=== PATIENT | male | born 1995 | race Caucasian/White ===

== ENCOUNTER → 2017-04-05 | Outpatient (CLI) | payer OTHER ==
--- NOTE | 2017-04-05 14:39 | XR ---
EXAMINATION TYPE: XR wrist complete LT DATE OF EXAM: 04/05/2017 COMPARISON: NONE HISTORY: Pain TECHNIQUE: Four views submitted. FINDINGS: The osseous structures are intact. The joint spaces are preserved and there is no acute fracture or dislocation. IMPRESSION: 1. No definite acute fracture or dislocation if symptoms persist, follow-up study in 7 to 10 days wo uld be suggested
--- NOTE | 2017-04-05 14:39 | XR ---
EXAMINATION TYPE: XR hand complete LT DATE OF EXAM: 04/05/2017 COMPARISON: NONE HISTORY: Pain TECHNIQUE: Three views are submitted. FINDINGS: The osseous structures are intact. Tiny bony density at the base of the proximal phalanx third digit may be chronic correlate with point tenderness. The joint spaces are preserved and there is no acute fracture or dislocation. IMPRESSION: 1. No definite acute fracture or dislocation if symptoms persist, follow-up study in 7 to 10 days wo uld be suggested. There is a tiny bony density adjacent to the base of the proximal phalanx third dig it which may be chronic. Correlate with point tenderness.
== END | disposition home or self-care (01) ==
LOC: RADXRMAIN 14:21
PROVIDERS: ATTEND Emergency Medicine
DX: M89.8X4 Other specified disorders of bone, hand (principal); S60.222A Contusion of left hand, initial encounter; S63.512A Sprain of carpal joint of left wrist, initial encounter

== ENCOUNTER 2017-09-16 18:01 | Emergency (ER) | payer BC ==
[2017-09-16] MEDS ORDERED: ACETAMINOPHEN TAB 500 MG TAB PO STA (18:12)
[2017-09-16] MEDS ORDERED: IBUPROFEN 600 MG TAB PO STA (18:14)
--- NOTE | 2017-09-16 18:27 | ED ---
Fever HPI - General Chief Complaint: Fever Stated Complaint: flu like symptoms Time Seen by Provider: 09/16/17 18:13 Source: patient Mode of arrival: ambulatory Limitations: no limitations - History of Present Illness Initial Comments: 21-year-old male patient presents to the emergency department today for complaints of fever and upper respiratory symptoms 3 days. Patient states that he has had cough, nasal congestion and drainage, and sore throat for the last 3 days. States that his fever has been high, states that he did take 2 pills earlier today however he is not sure which medication he took. He states that his fever will resolve and then it will go back up again. He is also reporting body aches, headache, and facial pressure. Denies any vomiting. Denies any constipation or diarrhea. He denies any sick contacts. He did not receive flu vaccine. Patient denies any recent rash, shortness breath, chest pain, abdominal pain, back pain, numbness, tingling, dizziness, weakness, hematuria, dysuria, urinary urgency, urinary frequency, visual changes, or any other complaints. - Related Data Previous Rx's Medication Instructions Recorded Acetaminophen Tab [Tylenol Tab] 1,000 mg PO Q6HR #30 tablet 09/16/17 Ibuprofen [Motrin] 600 mg PO Q8HR PRN #30 tab 09/16/17 Allergies Allergy/AdvReac Type Severity Reaction Status Date / Time No Known Allergies Allergy Verified 09/16/17 18:08 Review of Systems ROS Statement: Those systems with pertinent positive or pertinent negative responses have been documented in the HPI. ROS Other: All systems not noted in ROS Statement are negative. Past Medical History Past Medical History: No Reported History History of Any Multi-Drug Resistant Organisms: None Reported Past Surgical History: Appendectomy, Tonsillectomy Additional Past Surgical History / Comment(s): testicular surgery Past Psychological History: No Psychological Hx Reported Smoking Status: Current every day smoker Past Alcohol Use History: None Reported Past Drug Use History: Marijuana General Exam Limitations: no limitations General appearance: alert, in no apparent distress, other (This is a well- developed, well-nourished adult male patient in no acute distress. Vital signs upon presentation are temperature 101.3F, pulse 116, respirations 20, blood pressure 110/60, pulse ox 96% on room air.) Eye exam: Present: normal appearance, PERRL, EOMI. Absent: scleral icterus, conjunctival injection, periorbital swelling ENT exam: Present: normal exam, mucous membranes moist, TM's normal bilaterally , other (No tonsillar hypertrophy or exudate noted). Absent: normal oropharynx (Oropharyngeal erythema) Neck exam: Present: normal inspection. Absent: tenderness, meningismus, lymphadenopathy Respiratory exam: Present: normal lung sounds bilaterally. Absent: respiratory distress, wheezes, rales, rhonchi, stridor Cardiovascular Exam: Present: normal rhythm, tachycardia, normal heart sounds. Absent: systolic murmur, diastolic murmur, rubs, gallop, clicks GI/Abdominal exam: Present: soft, normal bowel sounds. Absent: distended, tenderness, guarding, rebound, rigid Neurological exam: Present: alert, oriented X3, CN II-XII intact Psychiatric exam: Present: normal affect, normal mood Skin exam: Present: warm, dry, intact, normal color. Absent: rash Course Vital Signs 09/16/17 18:06 Temperature 101.3 F H Pulse Rate 116 H Respiratory 20 Rate Blood Pressure 110/60 O2 Sat by Pulse 96 Oximetry Medical Decision Making - Lab Data Lab Results 09/16/17 09/16/17 Range/Units 18:10 18:10 Influenza Type A RNA Detected H (Not Detectd) Influenza Type B (PCR) Not Detected (Not Detectd) Group A Strep Rapid Negative (Negative) - Radiology Data Radiology results: report reviewed, image reviewed 21-year-old male patient percents to the emergency department today for complaints of fever and upper respiratory symptoms 3 days. Physical examination did reveal some oropharyngeal erythema. Lungs are clear to auscultation with good air movement. Patient was positive for influenza A. Did discuss that he is out of the treatment window for Tamiflu. I did discuss home management techniques. I instructed him regarding good control of his fever. As well as increasing fluids and getting rest. He is instructed to follow-up with his primary care physician for recheck in 1-2 days. He is instructed to return here immediately for any new, worsening, or concerning symptoms. He verbalizes understanding and agrees this plan. Disposition Clinical Impression: Influenza A Disposition: HOME SELF-CARE Condition: Good Instructions: Fever in Adults (ED), Influenza (ED) Additional Instructions: Increase fluids, especially water and things like Gatorade. Treat her fever with Tylenol and Motrin. Take kmit-pop-ujhdemy nasal decongestants like DayQuil , NyQuil, or Sudafed. Rest. Follow-up with her doctor for recheck in 1-2 days. Return here immediately for any new, worsening, or concerning symptoms. Prescriptions: Acetaminophen Tab [Tylenol Tab] 1,000 mg PO Q6HR #30 tablet Ibuprofen [Motrin] 600 mg PO Q8HR PRN #30 tab PRN Reason: Pain Referrals: None,Stated [Primary Care Provider] - 1-2 days Time of Disposition: 19:11
[2017-09-16 19:17] VITALS: BP 112/58; PULSE 110; RESP 18; TEMP 97.9
== END 2017-09-16 19:17 | disposition home or self-care (01) ==
LOC: EC 18:01
DX: J10.1 Influenza due to other identified influenza virus with other respiratory manifestations (principal); F17.200 Nicotine dependence, unspecified, uncomplicated
CPT/HCPCS: 87081; 87430; 87502; 99283

== ENCOUNTER 2017-12-12 21:41 | Emergency (ER) | payer OTHER ==
[2017-12-12] MEDS ORDERED: IBUPROFEN 600 MG TAB PO ONE (23:20)
[2017-12-12] MEDS ORDERED: SULFAMETHOX-TMP 800-160MG 1 EACH TAB ONE (23:20)
== END 2017-12-12 23:00 | disposition home or self-care (01) ==
LOC: EC 21:41
DX: L05.01 Pilonidal cyst with abscess (principal); F17.200 Nicotine dependence, unspecified, uncomplicated
CPT/HCPCS: 99283

== ENCOUNTER 2017-12-26 06:31 | Day surgery (SDC) | payer OTHER ==
[~2017-12-26 06:31] MED LIST: HEPARIN SODIUM,PORCINE 5,000 UNIT/ML 1 ML VIAL SQ ONE; Pre Op ABX Message 1 EACH MISC MISCELLANE ONE; ceFAZolin IN SWFI 2 GM/20 ML SYRINGE IVP ONE; metroNIDAZOLE-NS PMX 500 MG in SALINE 1 100ML.BAG IVPB ONE
[2017-12-26 07:00] VITALS: RESP 16; TEMP 98.8
[2017-12-26] MEDS ORDERED: LACTATED RINGERS 1,000 ML IV ONE (07:12)
[2017-12-26] MEDS ORDERED: LIDOCAINE 1% 20 ML VIAL (10MG/ML) FOR IV START INTRADERMA ONE (07:12)
[2017-12-26] MEDS: LACTATED RINGERS 1,000 ML IV ONE ×2 (07:12→09:31)
[2017-12-26] MEDS ORDERED: DEXAMETHASONE SOD PHOSPHATE 10 MG/ML 1 ML VIAL IV ONE (07:14)
[2017-12-26] MEDS ORDERED: ONDANSETRON ODT 4 MG TAB PO ONE (07:14)
[2017-12-26] MEDS ORDERED: MORPHINE SULFATE 2 MG/ML SYRINGE IV PRN (07:14)
[2017-12-26] MEDS ORDERED: LACTATED RINGERS 1,000 ML IV SCH (07:14)
[2017-12-26] MEDS ORDERED: HYDROmorphone 0.5 MG/0.5 ML SYRINGE IVP PRN (07:14)
[2017-12-26] MEDS ORDERED: SCOPOLAMINE 1.5MG/72HR PATCH TRANSDERM ONE (07:14)
[2017-12-26] MEDS ORDERED: LIDOCAINE 1% 20 ML VIAL (10MG/ML) FOR IV START INTRADERMA PRN (07:14)
[2017-12-26] MEDS: MIDAZOLAM 2 MG/2 ML VIAL IV PRN ×2 (07:31→07:32)
[2017-12-26] MEDS ORDERED: ONDANSETRON 4 MG/2 ML VIAL IVP ONE ×2 (07:32)
--- NOTE | 2017-12-26 07:46 | P.GSHP ---
History of Present Illness H&P Date: 12/26/17 Chief Complaint: Chronic pilonidal cyst [id number] male who's had issues with a chronically inflamed pilonidal cyst. Patient states he has had pain inflammation for approximately 3 years. 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 History of Any Multi-Drug Resistant Organisms: None Reported Past Surgical History: Appendectomy, Tonsillectomy Additional Past Surgical History / Comment(s): testicular surgery, mole removed from left side of face near left ear (was done at the same time as his tonsils Past Anesthesia/Blood Transfusion Reactions: No Reported Reaction Past Psychological History: Anxiety Additional Psychological History / Comment(s): Pt smokes marijuna for anxiety per pt Smoking Status: Current every day smoker Past Alcohol Use History: Rare Past Drug Use History: Marijuana Medications and Allergies Home Medications Medication Instructions Recorded Confirmed Type Acetaminophen Tab [Tylenol Tab] 1,000 mg PO Q6HR #30 tablet 09/16/17 12/26/17 Rx Ibuprofen [Motrin] 600 mg PO Q8HR PRN #30 tab 09/16/17 12/26/17 Rx Sulfamethoxazole/Trimethoprim 2 tab PO BID 12/26/17 12/26/17 History [Bactrim DS 800-160 mg] Allergies Allergy/AdvReac Type Severity Reaction Status Date / Time No Known Allergies Allergy Verified 12/26/17 06:46 Surgical - Exam Vital Signs Temp Pulse Resp BP Pulse Ox 98.8 F 72 16 116/71 98 12/26/17 06:58 12/26/17 06:58 12/26/17 06:58 12/26/17 06:58 12/26/17 06:58 - General well developed, well nourished, no distress - Eyes PERRL - ENT normal pinna - Neck no masses - Respiratory normal expansion - Cardiovascular Rhythm: regular - Abdomen Abdomen: soft, non tender - Integumentary large complicated pilonidal cyst with evidence of recurrent abscess and chronic inflammation Assessment and Plan Plan: Chronic pilonidal cyst. We'll perform excision. Patient aware the risk of surgery including chronic wound infection. He will need wound care packing at home after the procedure.
[2017-12-26] MEDS ORDERED: LIDOCAINE 1% INJ 10MG/ML (20 ML MDV) ONE (07:53)
[2017-12-26] MEDS ORDERED: DEXAMETHASONE SOD PHOS (MDV) 100 MG/10 ML VIAL ONE (07:53)
[2017-12-26] MEDS ORDERED: GLYCOPYRROLATE 0.2 MG/ML 2 ML VIAL ONE (07:53)
[2017-12-26] MEDS ORDERED: fentaNYL (PF) 50 MCG/ML 2 ML AMP ONE (07:53)
[2017-12-26] MEDS ORDERED: PROPOFOL 10 MG/ML 20 ML VIAL IV ONE (07:53)
[2017-12-26] MEDS ORDERED: MIDAZOLAM 2 MG/2 ML VIAL ONE (07:53)
[2017-12-26] MEDS ORDERED: diphenhydrAMINE 50 MG/ML 1 ML VIAL ONE (07:53)
[2017-12-26] MEDS ORDERED: ONDANSETRON 4 MG/2 ML VIAL ONE (07:53)
[2017-12-26] MEDS ORDERED: BUPIVACAINE (PF) 0.25% 30 ML VIAL SQ ONE (08:13)
[2017-12-26] MEDS ORDERED: LIDOCAINE 2%-EPI 1:100,000 20 ML VIAL SQ ONE (08:13)
[2017-12-26 09:11] VITALS: BP 104/71
--- NOTE | 2017-12-26 09:11 | P.OP ---
Date of Procedure: 12/26/17 Preoperative Diagnosis: Pilonidal cyst Postoperative Diagnosis: Chronic Pilonidal cyst, Procedure(s) Performed: Excision of pilonidal cyst Anesthesia: MAC Surgeon: Chad Mendoza Estimated Blood Loss (ml): 5 Pathology: other (Pilonidal cyst) Condition: stable Disposition: PACU Description of Procedure: The patient's placed on the operating table in the prone jackknife position. He received IV sedation. The area was anesthetized 1% local Xylocaine. Elliptical skin incision was made around the pilonidal cyst. Using left cautery in the Harmonic scissors the pilonidal cyst area was excised. The Bovie hemostasis. The wound was packed with Kerlix wet-to-dry dressing. Patient top she will was sent to recovery in stable condition.
[2017-12-26 09:34] VITALS: PULSE 58
== END 2017-12-26 10:00 | disposition home or self-care (01) ==
LOC: OR 06:31
PROVIDERS: ATTEND Surgery
DX: L05.01 Pilonidal cyst with abscess (principal); J45.909 Unspecified asthma, uncomplicated; F17.200 Nicotine dependence, unspecified, uncomplicated; Z79.2 Long term (current) use of antibiotics; Z79.899 Other long term (current) drug therapy
CPT/HCPCS: 88304; 11770; J2250; J1200; J1644; J1100 ×2; J2405; J2001; J3010; J2704; J0690

== ENCOUNTER 2018-02-15 19:34 | Inpatient (IN) | payer MEDICAID, OTHER ==
[2018-02-15 21:07] LABS: Cocaine Screen,Urine Not Detected (NotDetected); Opiate Screen,Urine Not Detected (NotDetected); Phencyclidine Screen,Urine Not Detected (NotDetected); Urn Cannabinoid Scrn Detected (NotDetected)
[2018-02-15 21:08] LABS: Amphetamine Screen,Urine Not Detected (NotDetected); Barbiturate Screen,Urine Not Detected (NotDetected); Benzodiazepines Screen,Urine Not Detected (NotDetected); Methadone Screen, Urine Not Detected (NotDetected); Oxycodone Screen, Urine Not Detected (NotDetected); Tricyclic Antidepressant,Urine Not Detected (NotDetected)
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
[2018-02-15] MEDS ORDERED: MAGNESIUM HYDROXIDE 2,400 MG/10 ML CUP PO PRN (22:06)
[2018-02-15] MEDS ORDERED: MAG HYDROX/AL HYDROX/SIMETH 30 ML CUP PO PRN (22:06)
[2018-02-15] MEDS ORDERED: ACETAMINOPHEN TAB 325 MG TAB PO PRN (22:06)
[2018-02-15] MEDS ORDERED: ZIPRASIDONE 20 MG VIAL IM PRN (22:06)
[2018-02-15] MEDS ORDERED: LORazepam 2 MG/ML INJ IM PRN (22:12)
[2018-02-15 22:37] VITALS: RESP 16; TEMP 97
[2018-02-15 23:30] LABS: Appearance,Urine Clear (Clear); Bilirubin,Urine Negative (Negative); Blood,Urine Negative (Negative); Color,Urine Yellow; Glucose,Urine (UA) Negative (Negative); Ketones,Urine Negative (Negative); Leukocyte Esterase,Urine Negative (Negative); Nitrite,Urine Negative (Negative); PH, Urine 5.5 (5.0-8.0); Protein,Urine Negative (Negative); Specific Gravity,Urine 1.022 (1.001-1.035); Urobilinogen,Urine <2.0 mg/dL (<2.0)
[2018-02-15 23:54] VITALS: BP 122/66; PULSE 77
[2018-02-15] MEDS: LORazepam 1 MG TAB PO PRN (23:54)
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
[2018-02-16] MEDS ORDERED: NICOTINE 21MG/24HR PATCH TRANSDERM SCH (09:00)
[2018-02-16 10:43] LABS: Basophils # (A) 0.1 k/uL (0-0.2); Basophils % (A) 1 %; Eosinophils # (A) 0.6 k/uL (0-0.7); Eosinophils % (A) 6 %; HCT 45.5 % (39.0-53.0); HGB 15.2 gm/dL (13.0-17.5); Lymphocytes # (A) 1.1 k/uL (1.0-4.8); Lymphocytes % (A) 11 %; MCH 31.6 pg (25.0-35.0); MCHC 33.5 g/dL (31.0-37.0); MCV 94.4 fL (80.0-100.0); Mean Platelet Volume 6.5; Monocytes # (A) 0.5 k/uL (0-1.0); Monocytes % (A) 5 %; Neutrophils # (A) 7.9 k/uL (1.3-7.7); Neutrophils % (A) 77 %; Platelet Count 220 k/uL (150-450); RBC 4.82 m/uL (4.30-5.90); RDW 12.8 % (11.5-15.5); WBC 10.2 k/uL (4.0-11.0)
[2018-02-16 11:00] LABS: ALT 23 U/L (21-72); AST 18 U/L (17-59); Albumin 4.9 g/dL (3.5-5.0); Alkaline Phosphatase 50 U/L (38-126); Anion Gap 11 mmol/L; Blood Urea Nitrogen 15 mg/dL (9-20); Calcium 10.3 mg/dL (8.4-10.2); Carbon Dioxide 28 mmol/L (22-30); Chloride 104 mmol/L (98-107); Glucose 60 mg/dL (74-99); Potassium 4.6 mmol/L (3.5-5.1); Sodium 143 mmol/L (137-145); Total Bilirubin 0.9 mg/dL (0.2-1.3); Total Protein 7.5 g/dL (6.3-8.2)
[2018-02-16] MEDS: LORazepam 1 MG TAB PO PRN (13:21)
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
--- NOTE | 2018-02-16 16:27 | P.DS ---
Providers Date of admission: 02/15/18 22:01 Attending physician: Angelo Brito MD Consults: 02/15/18 22:06 Consult Physician Routine Consulting Provider: Valeriano Physician Consult Reason/Comments: H & P and medical care Do you want consulting provider notified?: Yes Primary care physician: Stated None - Discharge Diagnosis(es) (1) Difficulty controlling anger Current Visit: Yes Status: Chronic Priority: Medium (2) History of attention deficit hyperactivity disorder (ADHD) Current Visit: Yes Status: Chronic Priority: Medium (3) History of conduct disorder Current Visit: Yes Status: Chronic Priority: Medium Hospital Course: The patient is a 24-year-old single male who has history of childhood conduct disorder, ADHD and anger problems. He [facility] at the behest of his girlfriend because he strikes himself when he becomes extremely angry. He also had a history of tying a cord around his neck about one month prior to admission during an argument with his girlfriend. He alleges that he has no recollection of his behavior during this episode. He does not remember striking himself and did not remember tying the cord around his neck. He is aware of these behaviors because his girlfriend is present ( the behavioral typically occur when they are arguing) and she describes his behavior to him. He denies suicidal homicidal ideation. He denied that he is assaultive towards friend's family and his girlfriend. He denied symptoms consistent with a mood disorder, anxiety disorder or psychotic disorder. He smokes marijuana and has a history of psychostimulant abuse. His urine drug screen was positive for cannabis and methamphetamine. He denied using methamphetamine and was unable to explain urine drug screen result. We admitted him voluntarily to the psychiatric unit. He received a comprehensive biopsychosocial assessment. The netsuite consultant recruit instructor completed initial physical assessment. rehabilitation worker completed the psychosocial assessment and spoke with his grandmother with whom he lives. He requested discharge. The social director spoke with grandmother who had no reservations about the discharge and returning to her home. She told the social director that she has been urging him to obtain outpatient mental health treatment. The patient agreed to referral to community mental health for individual therapy. At the time of discharge she presented as a casually groomed young male who was pleasant on approach. He made eye contact and attended to the interview. He had multiple tattoos but no prominent physical abnormalities. He had a blunted but bright facial expression. He showed no abnormality of psychomotor behavior. His speech was spontaneous with slight decrease in rate and rhythm. He had no articulation difficulties. His affect was stable and appropriate. He denied suicidal ideation, wishes or homicidal ideation. He denied depressive cognitions such as hopelessness, helplessness and worthlessness. He did not express ideas reference, paranoid ideation or delusional thoughts. His thinking was concrete but his associations were coherent and logical. He denied hallucinations and did not appear to be responding to internal stimuli. Patient Condition at Discharge: Stable Plan - Discharge Summary Discharge Rx Participant: No New Discharge Prescriptions: New Nicotine 21Mg/24Hr Patch [Habitrol] 1 patch TRANSDERM DAILY #7 patch Discharge Medication List Nicotine 21Mg/24Hr Patch [Habitrol] 1 patch TRANSDERM DAILY #7 patch 02/16/18 [ Rx] Follow up Appointment(s)/Referral(s): [facility] [Outside] - 02/22/18 3:00 pm (w/ Kentrell Brantley. Patient to arrive at 2:45pm for paperwork) None,Stated [Primary Care Provider] - 1-2 days Patient Instructions/Handouts: Conduct Disorder (DC) Activity/Diet/Wound Care/Special Instructions: Activity and diet as tolerated. Avoid the use of street drugs and alcohol. Take all medications as prescribed. When you are in need of refills on your medications please contact your medical provider and/or outpatient psychiatrist to have this done. Please go to scheduled outpatient appointment for aftercare. If symptoms return or become worse call the crisis line at and/ or go to the nearest emergency room for an evaluation. Discharge Disposition: HOME SELF-CARE
== END 2018-02-16 16:46 | disposition home or self-care (01) | DRG 885 ==
LOC: EC 19:34 → 3MHU 22:01
PROVIDERS: ADMIT Psychiatry & Neurology Psychiatry; ATTEND Psychiatry & Neurology Psychiatry
DX: F23 Brief psychotic disorder (principal); F91.9 Conduct disorder, unspecified; F90.9 Attention-deficit hyperactivity disorder, unspecified type; R45.4 Irritability and anger; J45.909 Unspecified asthma, uncomplicated; R45.850 Homicidal ideations; F41.9 Anxiety disorder, unspecified; F17.210 Nicotine dependence, cigarettes, uncomplicated; R45.87 Impulsiveness; Z91.5 Personal history of self-harm; Z71.51 Drug abuse counseling and surveillance of drug abuser; Z71.6 Tobacco abuse counseling; Z56.0 Unemployment, unspecified; Z81.8 Family history of other mental and behavioral disorders; Z55.3 Underachievement in school; Z81.1 Family history of alcohol abuse and dependence; Z90.49 Acquired absence of other specified parts of digestive tract; Z98.890 Other specified postprocedural states; Z90.89 Acquired absence of other organs; Z62.811 Personal history of psychological abuse in childhood; Z62.810 Personal history of physical and sexual abuse in childhood
CPT/HCPCS: 80053; 80306; 81003; 82075; 84443; 85025; 99285

== ENCOUNTER 2018-03-27 13:26 | Emergency (ER) | payer OTHER ==
[2018-03-27 13:53] VITALS: BP 106/69; PULSE 77; RESP 18; TEMP 97.6
--- NOTE | 2018-03-27 16:11 | ED ---
General Adult HPI - General Chief complaint: Recheck/Abnormal Lab/Rx Stated complaint: post surgical rash Time Seen by Provider: 03/27/18 14:52 Source: patient, RN notes reviewed, old records reviewed Mode of arrival: ambulatory Limitations: no limitations - History of Present Illness Initial comments: This is a 22-year-old male the ER for evaluation. Patient is here today for evaluation regarding rash. Patient is rash in his groin area, no other significant complaints no fevers. No abdominal pain no nausea vomiting or diarrhea. - Related Data Previous Rx's Medication Instructions Recorded Cephalexin [Keflex] 500 mg PO Q6HR #40 cap 03/27/18 Hydrocortisone Cream 1 applic TOPICAL BID #1 tube 03/27/18 [Hydrocortisone 2.5% Cream] Nystatin 100,000 Unit/gm Powd 1 applic TOPICAL BID #15 gram 03/27/18 [Mycostatin Powder] Sulfamethox-Tmp 800-160Mg [Bactrim 1 tab PO Q12HR #20 tab 03/27/18 DS 800-160 mg] Allergies Allergy/AdvReac Type Severity Reaction Status Date / Time bee venom protein (honey bee) Allergy Swelling Verified 03/27/18 15:02 Review of Systems ROS Statement: Those systems with pertinent positive or pertinent negative responses have been documented in the HPI. ROS Other: All systems not noted in ROS Statement are negative. 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 History of Any Multi-Drug Resistant Organisms: None Reported Past Surgical History: Appendectomy, Tonsillectomy Additional Past Surgical History / Comment(s): testicular surgery, mole removed from left side of face near left ear (was done at the same time as his tonsils Past Anesthesia/Blood Transfusion Reactions: No Reported Reaction Past Psychological History: Anxiety Smoking Status: Current every day smoker Past Alcohol Use History: None Reported Past Drug Use History: Marijuana - Past Family History Family Additional Family Medical History / Comment(s): Denies any history of CAD General Exam - General Exam Comments Initial Comments: Does have urticarial rash on his abdomen Limitations: no limitations General appearance: alert, in no apparent distress Head exam: Present: atraumatic, normocephalic, normal inspection Eye exam: Present: normal appearance, PERRL, EOMI. Absent: scleral icterus, conjunctival injection, periorbital swelling ENT exam: Present: normal exam, mucous membranes moist Neck exam: Present: normal inspection. Absent: tenderness, meningismus, lymphadenopathy Respiratory exam: Present: normal lung sounds bilaterally. Absent: respiratory distress, wheezes, rales, rhonchi, stridor Cardiovascular Exam: Present: regular rate, normal rhythm, normal heart sounds. Absent: systolic murmur, diastolic murmur, rubs, gallop, clicks GI/Abdominal exam: Present: soft, normal bowel sounds. Absent: distended, tenderness, guarding, rebound, rigid Extremities exam: Present: normal inspection, full ROM, normal capillary refill. Absent: tenderness, pedal edema, joint swelling, calf tenderness Back exam: Present: normal inspection Neurological exam: Present: alert, oriented X3, CN II-XII intact Psychiatric exam: Present: normal affect, normal mood Skin exam: Present: warm, dry, intact, normal color. Absent: rash Course Vital Signs 03/27/18 13:50 Temperature 97.6 F Pulse Rate 77 Respiratory 18 Rate Blood Pressure 106/69 O2 Sat by Pulse 98 Oximetry Medical Decision Making - Medical Decision Making Of rash. Patient is rash and groin area around and just below umbilicus. Patient be treated with antibiotics and cream. Patient can be discharged home Disposition Clinical Impression: Fungal rash of trunk, Dermatitis Disposition: HOME SELF-CARE Condition: Good Instructions: Cellulitis (ED), Jock Itch (ED), Dermatitis (ED) Prescriptions: Cephalexin [Keflex] 500 mg PO Q6HR #40 cap Hydrocortisone Cream [Hydrocortisone 2.5% Cream] 1 applic TOPICAL BID #1 tube Nystatin 100,000 Unit/gm Powd [Mycostatin Powder] 1 applic TOPICAL BID #15 gram Sulfamethox-Tmp 800-160Mg [Bactrim DS 800-160 mg] 1 tab PO Q12HR #20 tab Is patient prescribed a controlled substance at d/c from ED?: No Referrals: Chda Mendoza MD [STAFF PHYSICIAN] - 1-2 days
== END 2018-03-27 16:46 | disposition home or self-care (01) ==
LOC: EC 13:26
DX: L30.9 Dermatitis, unspecified (principal); F17.200 Nicotine dependence, unspecified, uncomplicated; Z98.890 Other specified postprocedural states; Z91.030 Bee allergy status
CPT/HCPCS: 99283

== ENCOUNTER 2018-04-05 14:15 | Emergency (ER) | payer OTHER ==
[2018-04-05] MEDS ORDERED: ceFAZolin 1,000 MG in DEXTROSE/WATER 1 50ML.BAG IVPB STA (14:30)
[2018-04-05] MEDS ORDERED: DIPH,PERTUS(ACELL)TETVAC-LF 0.5 ML VIAL IM ONE (14:32)
[2018-04-05 14:45] LABS: Basophils # (A) 0.1 k/uL (0-0.2); Basophils % (A) 1 %; Eosinophils # (A) 0.5 k/uL (0-0.7); Eosinophils % (A) 6 %; HCT 44.1 % (39.0-53.0); HGB 14.9 gm/dL (13.0-17.5); Lymphocytes # (A) 3.2 k/uL (1.0-4.8); Lymphocytes % (A) 35 %; MCH 31.1 pg (25.0-35.0); MCHC 33.8 g/dL (31.0-37.0); MCV 92.1 fL (80.0-100.0); Mean Platelet Volume 6.5; Monocytes # (A) 0.4 k/uL (0-1.0); Monocytes % (A) 4 %; Neutrophils # (A) 4.6 k/uL (1.3-7.7); Neutrophils % (A) 52 %; Platelet Count 351 k/uL (150-450); RBC 4.79 m/uL (4.30-5.90); RDW 12.3 % (11.5-15.5); WBC 8.9 k/uL (4.0-11.0)
[2018-04-05 15:00] LABS: ALT 29 U/L (21-72); AST 17 U/L (17-59); Albumin 4.6 g/dL (3.5-5.0); Alcohol <10 mg/dL; Alkaline Phosphatase 56 U/L (38-126); Amylase 49 U/L (30-110); Anion Gap 10 mmol/L; Blood Urea Nitrogen 16 mg/dL (9-20); Carbon Dioxide 21 mmol/L (22-30); Chloride 110 mmol/L (98-107); Glucose 119 mg/dL (74-99); Lipase 56 U/L (23-300); Potassium 4.1 mmol/L (3.5-5.1); Sodium 141 mmol/L (137-145); Total Bilirubin 1.1 mg/dL (0.2-1.3); Total Protein 6.8 g/dL (6.3-8.2)
[2018-04-05 15:05] LABS: INR 1.1 (<1.2); Prothrombin Time 10.7 sec (9.0-12.0)
[2018-04-05 15:07] LABS: Creatine Kinase 130 U/L (55-170)
[2018-04-05 15:11] LABS: Creatine Kinase MB 1.3 ng/mL (0.0-2.4); Troponin I <0.012 ng/mL (0.000-0.034)
[2018-04-05] MEDS ORDERED: ACETAMINOPHEN IV (For NPO) 1,000 MG in SALINE 1 100ML.BAG IVPB STA (15:12)
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
[2018-04-05] MEDS ORDERED: SODIUM CHLORIDE 0.9% 1,000 ML IV ONE ×2 (15:15)
[2018-04-05] MEDS ORDERED: LIDOCAINE 1% INJ 10MG/ML (20 ML MDV) SQ STA ×2 (15:17)
--- NOTE | 2018-04-05 15:18 | XR ---
EXAMINATION TYPE: XR hand complete bilateral DATE OF EXAM: 04/05/2018 CLINICAL HISTORY: Punching injury with pain and bleeding bilaterally TECHNIQUE: Frontal, lateral and oblique images of the bilateral hands are obtained. COMPARISON: Prior left hand x-ray April 15, 2017.. FINDINGS: Evaluation noted suboptimal due to patient not completely extending phalanges particularly in the left hand. Peripheral IV noted radial aspect of right wrist near distal radius. No acute fract ure or dislocation is seen bilaterally. There is persistent 1 to 2 mm ossific curvilinear density geno r radial base of third proximal phalanx unchanged from prior x-ray. Joint spaces are preserved. Overl jan soft tissue is unremarkable bilaterally. IMPRESSION: There is no acute fracture or dislocation in either hand.
[2018-04-05 15:34] LABS: Appearance,Urine Clear (Clear); Bilirubin,Urine Negative (Negative); Blood,Urine Small (Negative); Color,Urine Yellow; Glucose,Urine (UA) Negative (Negative); Ketones,Urine Negative (Negative); Leukocyte Esterase,Urine Negative (Negative); Mucus,Urine Rare /hpf; Nitrite,Urine Negative (Negative); Protein,Urine Negative (Negative); RBC,Urine 1 /hpf (0-5); Specific Gravity,Urine 1.014 (1.001-1.035); Urobilinogen,Urine <2.0 mg/dL (<2.0)
[2018-04-05 15:42] LABS: Amphetamine Screen,Urine Detected (NotDetected); Cocaine Screen,Urine Not Detected (NotDetected); Opiate Screen,Urine Not Detected (NotDetected); Phencyclidine Screen,Urine Not Detected (NotDetected); Urn Cannabinoid Scrn Detected (NotDetected)
--- NOTE | 2018-04-05 15:42 | ED ---
Wound/Laceration HPI <Edu Evans - Last Filed: 04/05/18 16:09> <Shu Irby - Last Filed: 04/05/18 17:03> - General Source: patient, RN notes reviewed Mode of arrival: wheelchair Limitations: no limitations <Yoav Lopez - Last Filed: 04/05/18 17:24> - General Chief Complaint: Wound/Laceration Stated Complaint: left hand lac Time Seen by Provider: 04/05/18 14:20 - History of Present Illness Initial Comments: This is a 22-year-old male who presents with complaints of lacerations of both upper extremities after punching a window well when he became angry. He was actively bleeding upon arrival from a left forearm laceration. He denies any drugs or alcohol. Denies shortness last tetanus shot was he denies any ALLERGIES to antibiotics. Of note the patient did have several nursing with episodes after arrival. (Yoav Lopez) - Related Data Previous Rx's Medication Instructions Recorded Cephalexin [Keflex] 500 mg PO Q6HR #40 cap 04/05/18 Ibuprofen 800 mg PO Q6HR PRN #20 tablet 04/05/18 Allergies Allergy/AdvReac Type Severity Reaction Status Date / Time bee venom protein (honey bee) Allergy Swelling Verified 04/05/18 15:13 Review of Systems ROS Other: All systems not noted in ROS Statement are negative. <Edu Evans - Last Filed: 04/05/18 16:09> ROS Other: All systems not noted in ROS Statement are negative. <Shu Irby - Last Filed: 04/05/18 17:03> ROS Other: All systems not noted in ROS Statement are negative. <Yoav Lopez - Last Filed: 04/05/18 17:24> ROS Statement: Those systems with pertinent positive or pertinent negative responses have been documented in the HPI. 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 History of Any Multi-Drug Resistant Organisms: None Reported Past Surgical History: Appendectomy, Tonsillectomy Additional Past Surgical History / Comment(s): testicular surgery, mole removed from left side of face near left ear (was done at the same time as his tonsils Past Anesthesia/Blood Transfusion Reactions: No Reported Reaction Past Psychological History: Anxiety Smoking Status: Current every day smoker Past Alcohol Use History: None Reported Past Drug Use History: Marijuana - Past Family History Family Additional Family Medical History / Comment(s): Denies any history of CAD <Yoav Lopez - Last Filed: 04/05/18 17:24> General Exam <Edu Evans - Last Filed: 04/05/18 16:09> <Shu Irby - Last Filed: 04/05/18 17:03> Limitations: no limitations General appearance: alert, anxious Head exam: Present: atraumatic Eye exam: Present: normal appearance, PERRL, EOMI. Absent: scleral icterus, conjunctival injection, periorbital swelling ENT exam: Present: normal exam, mucous membranes moist Neck exam: Present: normal inspection. Absent: tenderness, meningismus, lymphadenopathy Respiratory exam: Present: normal lung sounds bilaterally. Absent: respiratory distress, wheezes, rales, rhonchi, stridor Cardiovascular Exam: Present: regular rate, normal rhythm, normal heart sounds. Absent: systolic murmur, diastolic murmur, rubs, gallop, clicks GI/Abdominal exam: Present: soft, normal bowel sounds. Absent: distended, tenderness, guarding, rebound, rigid Extremities exam: Present: full ROM, other (Patient does demonstrate lacerations to both extremities especially left mid forearm. A tourniquet initially was applied but exploration revealed no active bleeding after taking down the tourniquet. I did perform Toni test which was negative for acute findings) Back exam: Present: normal inspection Neurological exam: Present: alert, oriented X3, CN II-XII intact. Absent: motor sensory deficit Psychiatric exam: Present: depressed, anxious Skin exam: Present: warm, normal color, diaphoretic. Absent: intact <Yoav Lopez - Last Filed: 04/05/18 17:24> - General Exam Comments Initial Comments: Is a well-developed wall nourished awake alert anxious male (JohnYoav) Course <Edu Evans - Last Filed: 04/05/18 16:09> <Shu Irby - Last Filed: 04/05/18 17:03> <Yoav Lopez - Last Filed: 04/05/18 17:24> - Reevaluation(s) Reevaluation #1: 04/05/18 15:41 the location and size of the lacerations 04/05/18 17:21 (Yoav Lopez) Procedures <Edu Evans - Last Filed: 04/05/18 16:09> <Shu Irby - Last Filed: 04/05/18 17:03> <Yoav Lopez - Last Filed: 04/05/18 17:24> - Procedures Initial comment: First laceration located to the left long at the face measuring 1.5 cm linear.The skin was anesthetized with 1% lidocaine. The laceration was then cleansed with and irrigated with normal saline. The wound was inspected, and there was no evidence of injury to deep structures. No foreign body was noted in the wound. A total of 3 skin sutures were placed utilizing 4-0 nylon. Second laceration located to the back of the left hand is 2 lacerations running parallel to one another each measuring approximately 1 cm. one single suture was used to close both lacerations as they were running parallel approximately 2 -3 mm apart. The laceration was then cleansed with and irrigated with normal saline. The wound was inspected, and there was no evidence of injury to deep structures. No foreign body was noted in the wound. A total of 1 skin sutures were placed utilizing 4-0 nylon. Third laceration site is the left forearm and a V shaped jagged measuring approximately 7.5 cm in total length.The skin was anesthetized with 1% lidocaine. The laceration was then cleansed with and irrigated with normal saline. The wound was inspected, and there was no evidence of injury to deep structures. No foreign body was noted in the wound. A total of 16 skin sutures were placed utilizing 4-0 nylon. (Edu Evans) Fourth laceration was V-shaped on the right second digit. Laceration measures approximately 4 cm. No evidence of tendon involvement. Laceration was anesthetized with 1% lidocaine in a proximally 2 mL with a digital nerve block. Laceration was closed with 7 sutures with 4-0 nylon.. Wound was inspected, no evidence of injury to deep structures. No foreign body. The Patient has total skin avulsion over the lateral aspect of the right index finger. Sutures are not able to be placed. Nailbed is intact. Gelfoam was placed over this open wound and tube gauze was placed. Patient does have full range of motion. Patient has a 1 cm skin avulsion over the distal tip of the first right digit. Wound was cleaned and covered with 1 cm of Gelfoam. Tube gauze was placed over the thumb as well. (Shu Irby) Medical Decision Making - Lab Data Result diagrams: 04/05/18 14:30 04/05/18 14:30 <Edu Evans - Last Filed: 04/05/18 16:09> - Lab Data Result diagrams: 04/05/18 14:30 04/05/18 14:30 <Shu Irby - Last Filed: 04/05/18 17:03> - Lab Data Result diagrams: 04/05/18 14:30 04/05/18 14:30 - Radiology Data Radiology results: report reviewed (I did review the imaging and report no acute findings. No evidence of foreign bodies.), image reviewed <Yoav Lopez - Last Filed: 04/05/18 17:24> - Medical Decision Making I did discuss the findings with the patient and with his family who are present he will be discharged he is not suicidal or homicidal. We did discuss stopping the recreational drugs he is been using. He does state that he was tried open a door was mad po2 heart he did not deliberately punched onestates. We'll go home with his mother he will follow-up with orthopedics. He'll be placed on antibiotics and pain medication. (Yoav Lopez) - Lab Data Lab Results 04/05/18 04/05/18 04/05/18 Range/Units 14:30 14:30 14:30 WBC 8.9 (4.0-11.0) k/uL RBC 4.79 (4.30-5.90) m/uL Hgb 14.9 (13.0-17.5) gm/dL Hct 44.1 (39.0-53.0) % MCV 92.1 (80.0-100.0) fL MCH 31.1 (25.0-35.0) pg MCHC 33.8 (31.0-37.0) g/dL RDW 12.3 (11.5-15.5) % Plt Count 351 (150-450) k/uL Neutrophils % 52 % Lymphocytes % 35 % Monocytes % 4 % Eosinophils % 6 % Basophils % 1 % Neutrophils # 4.6 (1.3-7.7) k/uL Lymphocytes # 3.2 (1.0-4.8) k/uL Monocytes # 0.4 (0-1.0) k/uL Eosinophils # 0.5 (0-0.7) k/uL Basophils # 0.1 (0-0.2) k/uL PT (9.0-12.0) sec INR (<1.2) APTT (22.0-30.0) sec Sodium 141 (137-145) mmol/L Potassium 4.1 (3.5-5.1) mmol/L Chloride 110 H (98-107) mmol/L Carbon Dioxide 21 L (22-30) mmol/L Anion Gap 10 mmol/L BUN 16 (9-20) mg/dL Creatinine 0.90 (0.66-1.25) mg/dL Est GFR (CKD-EPI)AfAm >90 (>60 ml/min/1.73 sqM) Est GFR (CKD-EPI)NonAf >90 (>60 ml/min/1.73 sqM) Glucose 119 H (74-99) mg/dL Plasma Lactic Acid Jordan (0.7-2.0) mmol/L Calcium 10.0 (8.4-10.2) mg/dL Total Bilirubin 1.1 (0.2-1.3) mg/dL AST 17 (17-59) U/L ALT 29 (21-72) U/L Alkaline Phosphatase 56 (38-126) U/L Total Creatine Kinase 130 (55-170) U/L CK-MB (CK-2) 1.3 (0.0-2.4) ng/mL CK-MB (CK-2) Rel Index 1.0 Troponin I <0.012 (0.000-0.034) ng/mL Total Protein 6.8 (6.3-8.2) g/dL Albumin 4.6 (3.5-5.0) g/dL Amylase 49 (30-110) U/L Lipase 56 (23-300) U/L Urine Color Urine Appearance (Clear) Urine pH (5.0-8.0) Ur Specific Holliday (1.001-1.035) Urine Protein (Negative) Urine Glucose (UA) (Negative) Urine Ketones (Negative) Urine Blood (Negative) Urine Nitrite (Negative) Urine Bilirubin (Negative) Urine Urobilinogen (<2.0) mg/dL Ur Leukocyte Esterase (Negative) Urine RBC (0-5) /hpf Urine Mucus (None) /hpf Urine Opiates Screen (NotDetected) Ur Oxycodone Screen (NotDetected) Urine Methadone Screen (NotDetected) Ur Propoxyphene Screen (NotDetected) Ur Barbiturates Screen (NotDetected) U Tricyclic Antidepress (NotDetected) Ur Phencyclidine Scrn (NotDetected) Ur Amphetamines Screen (NotDetected) U Methamphetamines Scrn (NotDetected) U Benzodiazepines Scrn (NotDetected) Urine Cocaine Screen (NotDetected) U Marijuana (THC) Screen (NotDetected) Serum Alcohol <10 mg/dL Blood Type Blood Type Confirm Blood Type Recheck Antibody Screen Spec Expiration Date 04/05/18 04/05/18 04/05/18 Range/Units 14:30 14:30 14:30 WBC (4.0-11.0) k/uL RBC (4.30-5.90) m/uL Hgb (13.0-17.5) gm/dL Hct (39.0-53.0) % MCV (80.0-100.0) fL MCH (25.0-35.0) pg MCHC (31.0-37.0) g/dL RDW (11.5-15.5) % Plt Count (150-450) k/uL Neutrophils % % Lymphocytes % % Monocytes % % Eosinophils % % Basophils % % Neutrophils # (1.3-7.7) k/uL Lymphocytes # (1.0-4.8) k/uL Monocytes # (0-1.0) k/uL Eosinophils # (0-0.7) k/uL Basophils # (0-0.2) k/uL PT 10.7 (9.0-12.0) sec INR 1.1 (<1.2) APTT 21.0 L (22.0-30.0) sec Sodium (137-145) mmol/L Potassium (3.5-5.1) mmol/L Chloride (98-107) mmol/L Carbon Dioxide (22-30) mmol/L Anion Gap mmol/L BUN (9-20) mg/dL Creatinine (0.66-1.25) mg/dL Est GFR (CKD-EPI)AfAm (>60 ml/min/1.73 sqM) Est GFR (CKD-EPI)NonAf (>60 ml/min/1.73 sqM) Glucose (74-99) mg/dL Plasma Lactic Acid Jordan 1.7 (0.7-2.0) mmol/L Calcium (8.4-10.2) mg/dL Total Bilirubin (0.2-1.3) mg/dL AST (17-59) U/L ALT (21-72) U/L Alkaline Phosphatase (38-126) U/L Total Creatine Kinase (55-170) U/L CK-MB (CK-2) (0.0-2.4) ng/mL CK-MB (CK-2) Rel Index Troponin I (0.000-0.034) ng/mL Total Protein (6.3-8.2) g/dL Albumin (3.5-5.0) g/dL Amylase (30-110) U/L Lipase (23-300) U/L Urine Color Urine Appearance (Clear) Urine pH (5.0-8.0) Ur Specific Holliday (1.001-1.035) Urine Protein (Negative) Urine Glucose (UA) (Negative) Urine Ketones (Negative) Urine Blood (Negative) Urine Nitrite (Negative) Urine Bilirubin (Negative) Urine Urobilinogen (<2.0) mg/dL Ur Leukocyte Esterase (Negative) Urine RBC (0-5) /hpf Urine Mucus (None) /hpf Urine Opiates Screen (NotDetected) Ur Oxycodone Screen (NotDetected) Urine Methadone Screen (NotDetected) Ur Propoxyphene Screen (NotDetected) Ur Barbiturates Screen (NotDetected) U Tricyclic Antidepress (NotDetected) Ur Phencyclidine Scrn (NotDetected) Ur Amphetamines Screen (NotDetected) U Methamphetamines Scrn (NotDetected) U Benzodiazepines Scrn (NotDetected) Urine Cocaine Screen (NotDetected) U Marijuana (THC) Screen (NotDetected) Serum Alcohol mg/dL Blood Type A Positive Blood Type Confirm Blood Type Recheck CABO Indicated Antibody Screen NEGATIVE Spec Expiration Date 04/08/2018232918 08/09/18 Range/Units 15:15 15:20 WBC (4.0-11.0) k/uL RBC (4.30-5.90) m/uL Hgb (13.0-17.5) gm/dL Hct (39.0-53.0) % MCV (80.0-100.0) fL MCH (25.0-35.0) pg MCHC (31.0-37.0) g/dL RDW (11.5-15.5) % Plt Count (150-450) k/uL Neutrophils % % Lymphocytes % % Monocytes % % Eosinophils % % Basophils % % Neutrophils # (1.3-7.7) k/uL Lymphocytes # (1.0-4.8) k/uL Monocytes # (0-1.0) k/uL Eosinophils # (0-0.7) k/uL Basophils # (0-0.2) k/uL PT (9.0-12.0) sec INR (<1.2) APTT (22.0-30.0) sec Sodium (137-145) mmol/L Potassium (3.5-5.1) mmol/L Chloride (98-107) mmol/L Carbon Dioxide (22-30) mmol/L Anion Gap mmol/L BUN (9-20) mg/dL Creatinine (0.66-1.25) mg/dL Est GFR (CKD-EPI)AfAm (>60 ml/min/1.73 sqM) Est GFR (CKD-EPI)NonAf (>60 ml/min/1.73 sqM) Glucose (74-99) mg/dL Plasma Lactic Acid Jordan (0.7-2.0) mmol/L Calcium (8.4-10.2) mg/dL Total Bilirubin (0.2-1.3) mg/dL AST (17-59) U/L ALT (21-72) U/L Alkaline Phosphatase (38-126) U/L Total Creatine Kinase (55-170) U/L CK-MB (CK-2) (0.0-2.4) ng/mL CK-MB (CK-2) Rel Index Troponin I (0.000-0.034) ng/mL Total Protein (6.3-8.2) g/dL Albumin (3.5-5.0) g/dL Amylase (30-110) U/L Lipase (23-300) U/L Urine Color Yellow Urine Appearance Clear (Clear) Urine pH 6.0 (5.0-8.0) Ur Specific Holliday 1.014 (1.001-1.035) Urine Protein Negative (Negative) Urine Glucose (UA) Negative (Negative) Urine Ketones Negative (Negative) Urine Blood Small H (Negative) Urine Nitrite Negative (Negative) Urine Bilirubin Negative (Negative) Urine Urobilinogen <2.0 (<2.0) mg/dL Ur Leukocyte Esterase Negative (Negative) Urine RBC 1 (0-5) /hpf Urine Mucus Rare H (None) /hpf Urine Opiates Screen Not Detected (NotDetected) Ur Oxycodone Screen Not Detected (NotDetected) Urine Methadone Screen Not Detected (NotDetected) Ur Propoxyphene Screen Not Detected (NotDetected) Ur Barbiturates Screen Not Detected (NotDetected) U Tricyclic Antidepress Not Detected (NotDetected) Ur Phencyclidine Scrn Not Detected (NotDetected) Ur Amphetamines Screen Detected H (NotDetected) U Methamphetamines Scrn Detected H (NotDetected) U Benzodiazepines Scrn Not Detected (NotDetected) Urine Cocaine Screen Not Detected (NotDetected) U Marijuana (THC) Screen Detected H (NotDetected) Serum Alcohol mg/dL Blood Type Blood Type Confirm A Positive Blood Type Recheck Antibody Screen Spec Expiration Date Disposition <Edu Evans - Last Filed: 04/05/18 16:09> <Shu Ibry - Last Filed: 04/05/18 17:03> Is patient prescribed a controlled substance at d/c from ED?: No <Yoav Lopez - Last Filed: 04/05/18 17:24> Clinical Impression: Laceration of multiple sites Disposition: HOME SELF-CARE Condition: Good Instructions: Laceration (ED), Finger Laceration (ED) Prescriptions: Cephalexin [Keflex] 500 mg PO Q6HR #40 cap Ibuprofen 800 mg PO Q6HR PRN #20 tablet PRN Reason: Pain Referrals: None,Stated [Primary Care Provider] - 1-2 days Diego Lewis MD [Medical Doctor] - 1-2 days
[2018-04-05 15:43] LABS: Barbiturate Screen,Urine Not Detected (NotDetected); Benzodiazepines Screen,Urine Not Detected (NotDetected); Methadone Screen, Urine Not Detected (NotDetected); Oxycodone Screen, Urine Not Detected (NotDetected); Tricyclic Antidepressant,Urine Not Detected (NotDetected)
[2018-04-05] MEDS ORDERED: GELATIN SPONGE,ABSORB (LARGE) 1 EACH SPONGE TOPICAL STA (16:11)
== END 2018-04-05 17:47 | disposition home or self-care (01) ==
LOC: EC 14:15
DX: S01.81XA Laceration without foreign body of other part of head, initial encounter (principal); S61.412A Laceration without foreign body of left hand, initial encounter; S51.812A Laceration without foreign body of left forearm, initial encounter; S61.210A Laceration without foreign body of right index finger without damage to nail, initial encounter; S61.001A Unspecified open wound of right thumb without damage to nail, initial encounter; R45.4 Irritability and anger; F17.200 Nicotine dependence, unspecified, uncomplicated; Z23 Encounter for immunization; Z91.030 Bee allergy status; W22.8XXA Striking against or struck by other objects, initial encounter; Y92.009 Unspecified place in unspecified non-institutional (private) residence as the place of occurrence of the external cause
CPT/HCPCS: 99283; 12011; 12005; 96365; 96368; 90471; 36415; 86900; 86901; 80053; 82150; 82550; 82553; 83605; 83690; 84484; 85025; 85610; 85730; 86850; 81001; 80306; 80320; 73130; 73090; 90715; J2001; J0690; J0131

== ENCOUNTER 2018-09-19 10:23 | Emergency (ER) | payer OTHER ==
[2018-09-19] MEDS ORDERED: ACETAMINOPHEN TAB 500 MG TAB PO STA (11:04)
[2018-09-19] MEDS ORDERED: ALBUTEROL NEBULIZED 2.5 MG/3 ML INHALATION STA (11:04)
[2018-09-19] MEDS ORDERED: IBUPROFEN 600 MG STARTER PACK 4 TAB BTL PO STA (11:04)
--- NOTE | 2018-09-19 11:26 | ED ---
URI HPI - General Chief Complaint: Upper Respiratory Infection Stated Complaint: Chest pain Time Seen by Provider: 09/19/18 10:32 Source: EMS, RN notes reviewed, old records reviewed Mode of arrival: EMS Limitations: no limitations - History of Present Illness Initial Comments: 22-year-old male presents returns today with complaint of cough with productive phlegm for 2 days as well as fevers and body aches. He complains of chest pain. Patient states that he has had a sore throat. He arrived via EMS. No significant past medical history. He does smoke marijuana for chronic back pain.Patient denies any recent fback pain, abdominal pain, nausea vomiting, numbness or tingling, dysuria or hematuria, constipation or diarrhea, headaches or visual changes, or any other current symptoms - Related Data Home Medications Medication Instructions Recorded Confirmed Pseudoephedrine 12Hr [Sudafed 12Hr] 120 mg PO Q12H PRN 09/19/18 09/19/18 Previous Rx's Medication Instructions Recorded Albuterol Inhaler [Ventolin Hfa 1 - 2 puff INHALATION RT-Q6H PRN 09/19/18 Inhaler] #1 inhaler Azithromycin 250 mg PO DAILY #6 tablet 09/19/18 Ibuprofen [Motrin] 600 mg PO Q8HR PRN #20 tab 09/19/18 methylPREDNISolone Dose Pack 4 mg PO DIRECTED #21 package 09/19/18 [Medrol Dose Pack] Allergies Allergy/AdvReac Type Severity Reaction Status Date / Time bee venom protein (honey bee) Allergy Swelling Verified 09/19/18 10:40 mold Allergy Unknown Verified 09/19/18 10:40 Childhood Review of Systems ROS Statement: Those systems with pertinent positive or pertinent negative responses have been documented in the HPI. ROS Other: All systems not noted in ROS Statement are negative. 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 History of Any Multi-Drug Resistant Organisms: None Reported Past Surgical History: Appendectomy, Tonsillectomy Additional Past Surgical History / Comment(s): testicular surgery, mole removed from left side of face near left ear (was done at the same time as his tonsils Past Anesthesia/Blood Transfusion Reactions: No Reported Reaction Past Psychological History: Anxiety Smoking Status: Current every day smoker Past Alcohol Use History: None Reported Past Drug Use History: Marijuana - Past Family History Family Additional Family Medical History / Comment(s): Denies any history of CAD General Exam - General Exam Comments Initial Comments: This is a 22-year-old male. Alert and oriented 3. No significant distress. Limitations: no limitations General appearance: alert, in no apparent distress Head exam: Present: atraumatic, normocephalic, normal inspection Eye exam: Present: normal appearance, PERRL, EOMI. Absent: scleral icterus, conjunctival injection, periorbital swelling ENT exam: Present: normal exam, mucous membranes moist Neck exam: Present: normal inspection. Absent: tenderness, meningismus, lymphadenopathy Respiratory exam: Present: normal lung sounds bilaterally, other (Chest wall tenderness, productive cough). Absent: respiratory distress, wheezes, rales, rhonchi, stridor Cardiovascular Exam: Present: regular rate, normal rhythm, normal heart sounds. Absent: systolic murmur, diastolic murmur, rubs, gallop, clicks GI/Abdominal exam: Present: soft, normal bowel sounds. Absent: distended, tenderness, guarding, rebound, rigid Extremities exam: Present: normal inspection, full ROM, normal capillary refill. Absent: tenderness, pedal edema, joint swelling, calf tenderness Back exam: Present: normal inspection Neurological exam: Present: alert, oriented X3, CN II-XII intact Course Vital Signs 09/19/18 09/19/18 09/19/18 10:25 11:13 11:23 Temperature 97.8 F Pulse Rate 99 101 H 90 Respiratory 24 Rate Blood Pressure 131/83 O2 Sat by Pulse 100 Oximetry 09/19/18 12:58 Temperature 98.8 F Pulse Rate 84 Respiratory 18 Rate Blood Pressure 111/58 O2 Sat by Pulse 97 Oximetry Medical Decision Making - Medical Decision Making 22-year-old male presents emergency department for fever chest pain cough shortness of breath and sore throat for 2 days. He recommended to emergency department with temperature 100.3. Given Motrin Tylenol breathing treatment chest x-ray. Influenza testing is pending. CXR was read to be normal, no pneumona, Influenza is negative. Patient felt better after duoneb, and motrin and tylenol. Will treat for mycoplasma pneumonia or bronchitis with Zpak, steriods, inhaler. Discussed using motrin and tylenol for fevers, and OTC cough suppressant. Patient agrees to treatment plan and will comply. - Lab Data Lab Results 09/19/18 Range/Units 11:14 Influenza Type A RNA Not Detected (Not Detectd) Influenza Type B (PCR) Not Detected (Not Detectd) 09/19/18 11:30 EKG performed at 1032. Normal sinus rhythm normal EKG. Ventricular rate of 92 beats were minute. Pulse 124 ms. QS duration is 90 ms. QT QTc is 340/4:30 milliseconds. - Radiology Data Radiology results: report reviewed Normal CXR. Disposition Clinical Impression: Chest wall pain, Bronchitis Disposition: HOME SELF-CARE Condition: Good Instructions (If sedation given, give patient instructions): Chest Pain (ED), Costochondritis (ED), Acute Bronchitis (ED) Additional Instructions: Patient advised to follow-up with your primary care physician. Take antibiotic and steroids as prescribed. Use inhalers without help with cough. Continue [id number] Sudafed. He needs take Motrin Tylenol for anti-inflammatory effects and fever validation leader. Patient should return to the emergency department if any alarming signs or symptoms occur. Prescriptions: Albuterol Inhaler [Ventolin Hfa Inhaler] 1 - 2 puff INHALATION RT-Q6H PRN #1 inhaler PRN Reason: Shortness Of Breath Azithromycin 250 mg PO DAILY #6 tablet Ibuprofen [Motrin] 600 mg PO Q8HR PRN #20 tab PRN Reason: Pain methylPREDNISolone Dose Pack [Medrol Dose Pack] 4 mg PO DIRECTED #21 package Is patient prescribed a controlled substance at d/c from ED?: No Referrals: Rocael Red MD [Primary Care Provider] - 1-2 days Time of Disposition: 13:02
--- NOTE | 2018-09-19 12:16 | XR ---
EXAMINATION TYPE: XR chest 2V DATE OF EXAM: 09/19/2018 COMPARISON: 03/31/2009 HISTORY: 22-year-old male with pain TECHNIQUE: PA and lateral views FINDINGS: Heart normal size. Aorta and pulmonary vasculature within normal limits. No consolidation, pneumothor ax, or pleural effusion. IMPRESSION: No acute cardiopulmonary process.
[2018-09-19 13:02] VITALS: BP 111/58; PULSE 84; RESP 18; TEMP 98.8
== END 2018-09-19 13:12 | disposition home or self-care (01) ==
LOC: EC 10:23
DX: J40 Bronchitis, not specified as acute or chronic (principal); R07.89 Other chest pain; G89.29 Other chronic pain; M54.9 Dorsalgia, unspecified; F12.90 Cannabis use, unspecified, uncomplicated; F17.200 Nicotine dependence, unspecified, uncomplicated; Z91.018 Allergy to other foods; Z91.09 Other allergy status, other than to drugs and biological substances; Z90.89 Acquired absence of other organs
CPT/HCPCS: 71046; 87502; 94640; 99285

== ENCOUNTER 2018-12-22 07:35 | Observation (INO) | payer OTHER ==
[2018-12-22] MEDS ORDERED: SODIUM CHLORIDE 0.9% 2,000 ML IV STA (07:47)
[2018-12-22 08:02] LABS: Glucose,Whole Blood 132 mg/dL (75-99)
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
[2018-12-22] MEDS ORDERED: LORazepam 2 MG/ML INJ IV STA ×2 (08:33→08:45)
[2018-12-22 08:47] LABS: Basophils % (A) 0 %; Eosinophils # (A) 0.1 k/uL (0-0.7); Eosinophils % (A) 1 %; HGB 14.6 gm/dL (13.0-17.5); Lymphocytes # (A) 1.1 k/uL (1.0-4.8); Lymphocytes % (A) 13 %; MCH 32.3 pg (25.0-35.0); MCHC 34.6 g/dL (31.0-37.0); MCV 93.3 fL (80.0-100.0); Mean Platelet Volume 6.6; Monocytes # (A) 0.4 k/uL (0-1.0); Monocytes % (A) 4 %; Neutrophils # (A) 6.9 k/uL (1.3-7.7); Neutrophils % (A) 81 %; Platelet Count 282 k/uL (150-450); RDW 12.6 % (11.5-15.5); WBC 8.5 k/uL (3.8-10.6)
[2018-12-22 08:53] LABS: Acetaminophen <10.0 ug/mL; Albumin 4.7 g/dL (3.5-5.0); Alcohol <10 mg/dL; Anion Gap 11 mmol/L; Blood Urea Nitrogen 20 mg/dL (9-20); Calcium 9.7 mg/dL (8.4-10.2); Carbon Dioxide 23 mmol/L (22-30); Chloride 109 mmol/L (98-107); Glucose 100 mg/dL (74-99); Salicylate <1.0 mg/dL; Sodium 143 mmol/L (137-145); Total Bilirubin 1.1 mg/dL (0.2-1.3); Total Protein 7.1 g/dL (6.3-8.2)
[2018-12-22 08:59] LABS: ALT 27 U/L (21-72); AST 22 U/L (17-59); Alkaline Phosphatase 55 U/L (38-126)
[2018-12-22 12:38] LABS: Appearance,Urine Clear (Clear); Bilirubin,Urine Negative (Negative); Blood,Urine Negative (Negative); Color,Urine Yellow; Glucose,Urine (UA) Negative (Negative); Ketones,Urine 2+ (Negative); Leukocyte Esterase,Urine Negative (Negative); Nitrite,Urine Negative (Negative); PH, Urine 5.5 (5.0-8.0); Protein,Urine Trace (Negative); Specific Gravity,Urine 1.026 (1.001-1.035); Urobilinogen,Urine <2.0 mg/dL (<2.0)
[2018-12-22 12:49] LABS: Amphetamine Screen,Urine Detected (NotDetected); Barbiturate Screen,Urine Not Detected (NotDetected); Benzodiazepines Screen,Urine Detected (NotDetected); Cocaine Screen,Urine Not Detected (NotDetected); Methadone Screen, Urine Not Detected (NotDetected); Opiate Screen,Urine Not Detected (NotDetected); Oxycodone Screen, Urine Not Detected (NotDetected); Phencyclidine Screen,Urine Not Detected (NotDetected); Tricyclic Antidepressant,Urine Not Detected (NotDetected); Urn Cannabinoid Scrn Detected (NotDetected)
[2018-12-22] MEDS ORDERED: NALOXONE 0.4 MG/ML 1 ML VIAL IV PRN (13:20)
[2018-12-22] MEDS ORDERED: LORazepam 2 MG/ML INJ IV PRN (13:20)
--- NOTE | 2018-12-22 14:08 | CT ---
EXAMINATION TYPE: CT brain wo con DATE OF EXAM: 12/22/2018 COMPARISON: None HISTORY: Overdose CT DLP: 1172.4 mGycm. Automated Exposure Control for Dose Reduction was Utilized. TECHNIQUE: CT scan of the head is performed without contrast. FINDINGS: Ventricles of normal size. There is no mass effect nor midline shift. There is no sign of intracranial hemorrhage. Calvarium is intact. There is mucus retention cyst 1.5 cm in the left maxil kailee sinus. IMPRESSION: Negative CT scan of the brain.
[2018-12-22] MEDS: SODIUM CHLORIDE 0.9% 1,000 ML IV SCH ×2 (14:57→23:47)
[2018-12-22 21:53] VITALS: RESP 16
[2018-12-23] MEDS: SODIUM CHLORIDE 0.9% 1,000 ML IV SCH (05:08)
[2018-12-23 05:39] VITALS: BP 110/59; PULSE 74; TEMP 98.2
--- NOTE | 2018-12-24 15:20 | HP ---
HISTORY AND PHYSICAL DATE OF SERVICE: 12/22/2018. CHIEF COMPLAINT: Methamphetamine overdose. HISTORY OF PRESENT ILLNESS: This is the first known admission for this 23-year-old white male. He was brought to the emergency room with mental status changes and agitation as well as tachycardia and he admitted to having been at a republic[employer] and overdosing on methamphetamine. REVIEW OF SYSTEMS: Is otherwise unremarkable and difficult to obtain. He denies chest pain, headache, shortness of breath, abdominal pain, vomiting, etc. Past medical history, family history and personal and social histories are all otherwise unremarkable or unobtainable. He is apparently not taking any medication. Surgically he has had appendectomy, T and A, and procedure to explore for cryptorchidism. He does smoke. He denies use of alcohol. PHYSICAL EXAM: Pulse is 125, temperature 97.6, blood pressure 113/72, respirations were 36. In general, he appeared to be well developed, well developed, well nourished, in no acute distress. Skin color was normal. Skin was hot and dry. Lymph nodes are not enlarged. Head, ears, eyes, nose, mouth, and throat were normal. Neck veins are not distended. Thyroid is not enlarged. Chest is clear to auscultation and percussion. Cardiac exam demonstrated sinus tachycardia with no murmurs or extra sounds. The abdomen is soft. No masses. Extremities are normal. Neurologically, seems a little bit lethargic and agitated as well. IMPRESSION: Amphetamine overdose. PLAN: 1. Bed rest. 2. IV fluids. 3. Frequent monitoring of his vital signs. MMODL / IJN: [id number] /
--- NOTE | 2018-12-24 18:32 | DS ---
DISCHARGE SUMMARY DATE OF DISCHARGE: 12/23/2018 CHIEF COMPLAINT: Amphetamine overdose. HISTORY OF PRESENT ILLNESS AND PHYSICAL EXAM: Details of this man's history and physical can be found in the initial workup. LABORATORY STUDIES: While he was in the hospital, he had laboratory studies, details of which can be found in the laboratory section of chart. COURSE IN HOSPITAL: After admission, he was placed on bedrest and started on intravenous fluids and he remained somewhat lethargic overnight and became more awake and alert. He was improving and he signed himself out AGAINST MEDICAL ADVICE. FINAL DIAGNOSIS: Amphetamine overdose. OPERATIONS: None. CONSULTATIONS: None. He left AMA. MMISSAL / ALISTAIRN: [id number] /
== END 2018-12-23 14:28 | disposition left against medical advice (07) ==
LOC: EC 07:35 → 3NMEDONC 13:22
PROVIDERS: ADMIT Family Medicine; ATTEND Family Medicine
DX: T43.621A Poisoning by amphetamines, accidental (unintentional), initial encounter (principal); R45.1 Restlessness and agitation; R00.0 Tachycardia, unspecified; R53.83 Other fatigue; R41.82 Altered mental status, unspecified; F17.200 Nicotine dependence, unspecified, uncomplicated; Z53.21 Procedure and treatment not carried out due to patient leaving prior to being seen by health care provider; Z91.030 Bee allergy status; Z91.048 Other nonmedicinal substance allergy status; Y92.89 Other specified places as the place of occurrence of the external cause
CPT/HCPCS: 96376; 96361 ×3; 96374; 99285; 36415; 93005; 80053; 85025; 81003; 80306; 83520; 70450; G0378 ×2; G0480 ×2; J2060; 80320; 80329

== ENCOUNTER 2019-05-11 21:30 | Emergency (ER) | payer OTHER ==
[2019-05-11 21:35] VITALS: TEMP 97.7
[2019-05-11 22:08] LABS: Appearance,Urine Clear (Clear); Bilirubin,Urine Negative (Negative); Blood,Urine Negative (Negative); Color,Urine Yellow; Glucose,Urine (UA) Negative (Negative); Ketones,Urine Negative (Negative); Leukocyte Esterase,Urine Small (Negative); Nitrite,Urine Negative (Negative); PH, Urine 5.5 (5.0-8.0); Protein,Urine Negative (Negative); RBC,Urine 1 /hpf (0-5); Specific Gravity,Urine 1.024 (1.001-1.035); Urobilinogen,Urine <2.0 mg/dL (<2.0); WBC,Urine 18 /hpf (0-5)
[2019-05-11] MEDS ORDERED: AZITHROMYCIN 250 MG TAB PO STA (22:29)
[2019-05-11] MEDS ORDERED: cefTRIAXone 250 MG VIAL IM STA (22:29)
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
[2019-05-11 22:51] VITALS: BP 120/56; PULSE 75; RESP 18
[2019-05-13 14:56] LABS: N. gonorrhoeae,PCR Negative (Neg,Equiv); Neisseria Source Urine
[2019-05-13 14:59] LABS: C. trachomatis,PCR Positive (Neg,Equiv); Chlamydia trachomatis Source Urine
== END 2019-05-11 22:51 | disposition home or self-care (01) ==
LOC: EC 21:30
DX: Z20.2 Contact with and (suspected) exposure to infections with a predominantly sexual mode of transmission (principal); F17.200 Nicotine dependence, unspecified, uncomplicated; Z98.890 Other specified postprocedural states; Z91.030 Bee allergy status; Z91.048 Other nonmedicinal substance allergy status
CPT/HCPCS: 81001; 87491; 87591; 99283; 96372; J0696

== ENCOUNTER 2020-04-21 16:42 | Emergency (ER) | payer OTHER ==
[2020-04-21 16:47] VITALS: BP 100/67; PULSE 68; RESP 18; TEMP 98.5
[2020-04-21] MEDS ORDERED: MORPHINE SULFATE 4 MG/ML SYRINGE IVP STA (16:52)
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
[2020-04-21] MEDS ORDERED: MORPHINE SULFATE 4 MG/ML SYRINGE IM STA (17:00)
--- NOTE | 2020-04-21 17:31 | XR ---
EXAMINATION TYPE: XR ankle complete LT, XR foot complete LT DATE OF EXAM: 04/21/2020 CLINICAL HISTORY: pain TECHNIQUE: Frontal, lateral and oblique images of the left foot and ankle are obtained. COMPARISON: None. FINDINGS: Moderate soft tissue swelling is noted about the ankle. I do not see evidence for an acute fracture or dislocation. Mild widening of the medial tibiotalar joint space may reflect ligamentous i njury. Ankle mortise is intact. Well-corticated bony fragment adjacent to the tarsal navicular likely reflects os navicularis. IMPRESSION: There is no acute fracture or dislocation. ICD 10 NO FRACTURE, INITIAL EVALUATION
[2020-04-21] MEDS ORDERED: IBUPROFEN 600 MG STARTER PACK 4 TAB BTL PO STA (17:36)
== END 2020-04-21 18:01 | disposition home or self-care (01) ==
LOC: EC 16:42
DX: S93.402A Sprain of unspecified ligament of left ankle, initial encounter (principal); F17.200 Nicotine dependence, unspecified, uncomplicated; Z91.030 Bee allergy status; Z91.048 Other nonmedicinal substance allergy status; X50.1XXA Overexertion from prolonged static or awkward postures, initial encounter; Y93.51 Activity, roller skating (inline) and skateboarding; Y92.89 Other specified places as the place of occurrence of the external cause
CPT/HCPCS: 73610; 73630; 99284; 96372; 29515; L4350; J2270

== ENCOUNTER 2024-12-31 01:23 | Emergency (ER) | payer OTHER ==
[2024-12-31 01:26] VITALS: BP 134/93; PULSE 110; RESP 18; TEMP 98.3
--- NOTE | 2024-12-31 01:58 | ED ---
ENT HPI - General Chief complaint: ENT Stated complaint: R Ear Ache, STD Time Seen by Provider: 12/31/24 01:36 Source: patient, RN notes reviewed Mode of arrival: ambulatory Limitations: no limitations - History of Present Illness Initial comments: This is a 29-year-old male presenting for right ear pain and recent positive STI test. Patient notes localized edema and tenderness on the outer aspect of his right ear. Also mentions testing positive for an unknown STI, never receiving treatment. Denies fever, lesions, urethral discharge, dysuria, hematuria. MD complaint: ear pain Onset/Timin -: days(s) Location: R ear - Related Data Previous Rx's Medication Instructions Recorded Ibuprofen [Motrin] 600 mg PO Q6HR PRN #20 tab 04/21/20 Doxycycline [Vibramycin] 100 mg PO BID #14 capsule 03/21/23 Cephalexin [Keflex] 500 mg PO Q6HR 1 Days #28 cap 12/31/24 Sulfamethox-Tmp 800-160Mg [Bactrim 1 tab PO Q12HR #14 tab 12/31/24 DS 800-160 mg] Allergies Allergy/AdvReac Type Severity Reaction Status Date / Time bee venom protein (honey bee) Allergy Swelling Verified 12/31/24 01:26 mold Allergy Unknown Verified 12/31/24 01:26 Childhood Review of Systems ROS Statement: Those systems with pertinent positive or pertinent negative responses have been documented in the HPI. ROS Other: All systems not noted in ROS Statement are negative. 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 Past Anesthesia/Blood Transfusion Reactions: No Reported Reaction Past Psychological History: Anxiety Smoking Status: Current every day smoker Past Alcohol Use History: Occasional Past Drug Use History: None Reported - Past Family History Family Additional Family Medical History / Comment(s): Denies any history of CAD General Exam Limitations: no limitations General appearance: alert, in no apparent distress Head exam: Present: atraumatic, normocephalic, normal inspection Eye exam: Present: normal appearance, PERRL, EOMI. Absent: scleral icterus, conjunctival injection, periorbital swelling ENT exam: Present: normal oropharynx, mucous membranes moist, TM's normal bilaterally. Absent: normal external ear exam (1.5 cm diameter abscess/cellulitis noted on pinna superior to opening of EAM with overlying erythema, warmth and tenderness. No obvious discharge) Neck exam: Present: normal inspection. Absent: tenderness, meningismus, lymphadenopathy Respiratory exam: Present: normal lung sounds bilaterally. Absent: respiratory distress, wheezes, rales, rhonchi, stridor, accessory muscle use, decreased breath sounds, prolonged expiratory Cardiovascular Exam: Present: regular rate, normal rhythm, normal heart sounds. Absent: systolic murmur, diastolic murmur, rubs, gallop, clicks GI/Abdominal exam: Present: soft, normal bowel sounds. Absent: distended, tenderness, guarding, rebound, rigid exam: Present: other (Patient deferred examination) Extremities exam: Present: normal inspection, full ROM, normal capillary refill. Absent: tenderness, pedal edema, joint swelling, calf tenderness Back exam: Present: normal inspection Neurological exam: Present: alert, oriented X3, CN II-XII intact Psychiatric exam: Present: normal affect, normal mood Skin exam: Present: warm, dry, intact, normal color. Absent: rash Course Vital Signs 12/31/24 01:24 Temperature 98.3 F Pulse Rate 110 H Respiratory 18 Rate Blood Pressure 134/93 O2 Sat by Pulse 97 Oximetry Medical Decision Making - Medical Decision Making Was pt. sent in by a medical professional or institution (, PA, DATA PROCESSING MECHANIC, urgent care, hospital, or snf...) When possible be specific @ -No Did you speak to anyone other than the patient for history (EMS, parent, family, police, friend...)? What history was obtained from this source @ -No Did you review nursing and triage notes (agree or disagree)? Why? @ -I reviewed and agree with nursing and triage notes Were old charts reviewed (outside hosp., previous admission, EMS record, old EKG, old radiological studies, urgent care reports/EKG's, snf records)? Report findings @ -No old charts were reviewed Differential Diagnosis (chest pain, altered mental status, abdominal pain women, abdominal pain men, vaginal bleeding, weakness, fever, dyspnea, syncope, headache, dizziness, GI bleed, back pain, seizure, CVA, palpatations, mental health, musculoskeletal)? @ -Abscess, cellulitis, erysipelas, cholesteatoma, AOM, otitis externa, chlamydia, gonorrhea, trichomonas, UTI, urethritis this is not an exhaustive list EKG interpreted by me (3pts min.). @ -Not done X-rays interpreted by me (1pt min.). @ -None done CT interpreted by me (1pt min.). @ -None done U/S interpreted by me (1pt. min.). @ -None done What testing was considered but not performed or refused? (CT, X-rays, U/S, labs)? Why? @ -None What meds were considered but not given or refused? Why? @ -None Did you discuss the management of the patient with other professionals (professionals i.e. , PA, DATA PROCESSING MECHANIC, lab, RT, psych nurse, drug abuse social worker, oracle database consultant, teacher, anti air warfare operations officer, adult protective caseworker)? Give summary @ -No Was smoking cessation discussed for >3mins.? @ -No Was critical care preformed (if so, how long)? @ -No Were there social determinants of health that impacted care today? How? (Homelessness, low income, unemployed, alcoholism, drug addiction, transportation, low edu. Level, literacy, decrease access to med. care, senior care, rehab)? @ -No Was there de-escalation of care discussed even if they declined (Discuss DNR or withdrawal of care, Hospice)? DNR status @ -No What co-morbidities impacted this encounter? (DM, HTN, Smoking, COPD, CAD, Cancer, CVA, ARF, Chemo, Hep., AIDS, mental health diagnosis, sleep apnea, morbid obesity)? @ -None Was patient admitted / discharged? Hospital course, mention meds given and route, prescriptions, significant lab abnormalities, going to OR and other pertinent info. @ -Attempted needle aspiration of an abscess produced no purulent or serous discharge. Patient provided p.o. Tylenol and Motrin for pain. Empiric STI treatment of IM Rocephin and p.o. azithromycin provided. Keflex and Bactrim DS sent to patient's pharmacy ordered for treatment of abscess. Advised warm compress to affected area for 10 minutes up to 4 times daily. Alternate Tylenol/Motrin every 4 hours for pain. Advised follow-up with PCP for repeat STI testing to ensure resolution of infection prior to resumption of unprotected intercourse. Discussed patient with Dr. Dill. Undiagnosed new problem with uncertain prognosis? @ -No Drug Therapy requiring intensive monitoring for toxicity (Heparin, Nitro, Insulin, Cardizem)? @ -No Were any procedures done? @ -Attempted needle aspiration of an abscess produced no purulent or serous discharge. Diagnosis/symptom? @ -Abscess of the pinna, empiric STI treatment Acute, or Chronic, or Acute on Chronic? @ -Acute Uncomplicated (without systemic symptoms) or Complicated (systemic symptoms)? @ -Uncomplicated Side effects of treatment? @ -No Exacerbation, Progression, or Severe Exacerbation? @ -No Poses a threat to life or bodily function? How? (Chest pain, USA, ID, pneumonia, PE, COPD, DKA, ARF, appy, cholecystitis, CVA, Diverticulitis, Homicidal, Suicidal, threat to staff... and all critical care pts) @ -No Disposition Clinical Impression: Abscess of right external ear, STI (sexually transmitted infection) Disposition: HOME SELF-CARE Condition: Good Instructions (If sedation given, give patient instructions): Abscess (ED) Additional Instructions: Apply warm compress to affected area for 10 minutes up to 4 times daily. Follow-up with primary care for any ongoing or worsening symptoms. Prescriptions: Sulfamethox-Tmp 800-160Mg [Bactrim DS 800-160 mg] 1 tab PO Q12HR #14 tab Cephalexin [Keflex] 500 mg PO Q6HR 1 Days #28 cap Is patient prescribed a controlled substance at d/c from ED?: No Referrals: None,Stated [Primary Care Provider] - 1-2 days Daryl Brenner MD [STAFF PHYSICIAN] - 1-2 days Time of Disposition: 01:58
[2024-12-31] MEDS: ACETAMINOPHEN TAB 500 MG TAB PO STA (02:03)
[2024-12-31] MEDS: IBUPROFEN 800 MG TAB PO STA (02:04)
[2024-12-31] MEDS: AZITHROMYCIN 500 MG TAB PO STA (02:04)
[2024-12-31] MEDS: cefTRIAXone 1,000 MG VIAL (IM USE) IM STA (02:05)
== END 2024-12-31 02:08 | disposition home or self-care (01) ==
LOC: EC 01:23
DX: H60.01 Abscess of right external ear (principal); A64 Unspecified sexually transmitted disease; F17.200 Nicotine dependence, unspecified, uncomplicated; Z91.030 Bee allergy status; Z77.120 Contact with and (suspected) exposure to mold (toxic)
CPT/HCPCS: 99283; 96372; J0696